=== PATIENT | male | born 1960 | race Caucasian/White ===

== ENCOUNTER 2020-08-13 09:12 | Emergency (ER) | payer MEDICAID ==
[~2020-08-13] VITALS: Ht 170.2 cm; Wt 55.3 kg
[2020-08-13 09:18] VITALS: BP 117/78
--- NOTE | 2020-08-13 10:54 | NUR ---
Patient ambulated to bed 7. RN evaluating the patient at bedside.
--- NOTE | 2020-08-13 11:03 | NUR ---
Dr. Kwon is evaluating the patient at bedside.
[2020-08-13] MEDS ORDERED: ONDANSETRON 4 MG/2 ML VIAL IVP ONE (11:15)
[2020-08-13] MEDS ORDERED: NACL 0.9% 2,000 ML IV ONE (11:15)
--- NOTE | 2020-08-13 11:41 | NUR ---
60 Y/O M BIB DAUGHTER, PT HAS BEEN C/O ABD PAIN WITH N&V SINCE 07/10. DENIES CONSTIPATION FOR DIARRHEA. NO PAINFUL URINATION. SKIN IS PINK/WARM/DRY; AAOX4 WITH EVEN AND STEADY GAIT; LUNGS CLEAR BL; HR EVEN AND REGULAR; PT DENIES ANY FEVER, CP, SOB, OR COUGH AT THIS TIME; PATIENT STATES PAIN OF 10/10 AT THIS TIME; VSS; PATIENT POSITIONED FOR COMFORT; HOB ELEVATED; BEDRAILS UP X2; BED DOWN. ER MD MADE AWARE OF PT STATUS. PT DAUGHTER AT BEDSIDE REQUESTING LABS AND CERTAIN TESTS FOR PT. STATES HE WAS SEEN AT 2 OTHER HOSPITALS AND HAS BEEN UPSET BECAUSE SHE HAS NOT BEEN TOLD ANY INFORMATION OF PT CONDITION. PMH: PREDIABETES NKA
--- NOTE | 2020-08-13 11:49 | NUR ---
ground water technician at bedside.
[2020-08-13 11:58] LABS: BASOPHILS # (AUTO) 0.1 K/uL (0.00-0.22); BASOPHILS % (AUTO) 0.9 % (0.0-2.0); EOSINOPHILS # (AUTO) 0.1 K/uL (0-0.4); HEMATOCRIT 38.2 % (36-52); HEMOGLOBIN 12.7 g/dL (12.0-18.0); LYMPHOCYTES # (AUTO) 1.6 K/uL (2.0-11.5); LYMPHOCYTES % (AUTO) 26.3 % (20.5-51.1); MEAN CORPUSCULAR HEMOGLOBIN 29 pg (27-31); MEAN CORPUSCULAR HGB CONC 33 g/dL (33-37); MEAN CORPUSCULAR VOLUME 85.7 fL (80-94); MONOCYTES # (AUTO) 0.5 K/uL (0.8-1.0); MONOCYTES % (AUTO) 7.6 % (1.7-9.3); NEUTROPHILS % (AUTO) 64.2 % (42.2-75.2); PLATELET COUNT (AUTO) 156 K/uL (140-450); RED BLOOD CELL COUNT(AUTO) 4.45 MIL/uL (4.20-6.10); RED CELL DISTRIBUTION WIDTH 13.6 % (11.6-13.7); WHITE BLOOD COUNT (AUTO) 6.3 K/uL (4.8-10.8)
[2020-08-13 12:20] LABS: ALBUMIN 4.3 g/dL (3.4-5.0); ANION GAP 11.8 (8-16); CARBON DIOXIDE 29.9 mmol/L (21-32); CREATININE 0.9 mg/dL (0.6-1.3); POTASSIUM 3.7 mmol/L (3.5-5.1); TOTAL BILIRUBIN 0.7 mg/dL (0.0-1.0)
--- NOTE | 2020-08-13 12:42 | NUR ---
Patient taken to CT scan via wheelchair by tech.
[2020-08-13 13:22] LABS: APPEARANCE,URINE CLEAR (CLEAR); BILIRUBIN,URINE 1+ (NEGATIVE); BLOOD, URINE NEGATIVE (NEGATIVE); COLOR,URINE YELLOW (YELLOW); LEUKOCYTE ESTERASE ,URINE NEGATIVE (NEGATIVE); NITRITE, URINE NEGATIVE (NEGATIVE); UGLUCOSE NEGATIVE (NEGATIVE)
[2020-08-13 13:35] LABS: RBC,URINE NONE SEEN /HPF (0-5); URIC ACID CRYSTALS,URINE 0-10 /HPF (None Seen); WBC,URINE 0-5 /HPF (0-5)
--- NOTE | 2020-08-13 14:20 | NUR ---
PT WAS SWABBED FOR COVID INDIRA, SENT WITH ASHLEY MCMAHON.
--- NOTE | 2020-08-13 16:29 | NUR ---
Patient to be transferred to [facility]. Is being transferred due to HIGHER LEVEL OF CARE. Receiving facility has accepting physician and available space. ER physician has signed transfer form. Patient or responsible constitution party has agreed to transfer and signed form. Patient belongings inventoried and will be sent with patient. Copy of nursing notes, lab reports, EKG, Physicians Orders and X-rays to be sent with patient. Report called to JEFFREY OSWALD at receiving facility. [facility] ambulance service has been called for transfer. ETA is NOT GIVEN.
[2020-08-13 18:17] VITALS: BP 148/62
--- NOTE | 2020-08-13 18:19 | NUR ---
TRIED TO CALL PT DAUGHTER FOR NOTIFICATION OF TRANSFER, NO ANSWER, LEFT VOICEMAIL TO CALL HOSPITAL BACK. PT DAUGHTER AWARE OF TRANSFER BUT UNAWARE OF ROOM # OR FACILITY.
== END 2020-08-13 16:29 | disposition short-term general hospital (02) ==
LOC: MED 09:12
DX: K22.2 Esophageal obstruction (principal); R11.2 Nausea with vomiting, unspecified; E11.9 Type 2 diabetes mellitus without complications
CPT/HCPCS: 36415; 71045; 74177; 80053; 81001; 83690; 85025; 87086; 87426; 96361; 96374; 99285; J2405; J7030; Q9967